=== PATIENT | female | born 2005 | race Caucasian/White ===

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

== ENCOUNTER 2023-10-26 08:30 | Emergency (ER) | payer BC, OTHER ==
[2023-10-26 10:27] LABS: SARS-CoV-2 NAA Rapid Test DETECTED (NotDetected)
== END 2023-10-26 10:56 | disposition home or self-care (01) ==
LOC: ERS 08:30
DX: U07.1 COVID-19 (principal); S16.1XXA Strain of muscle, fascia and tendon at neck level, initial encounter
CPT/HCPCS: 99283